=== PATIENT | female | born 1990 | race Caucasian/White ===

== ENCOUNTER → 2023-07-15 13:15 | Outpatient (REF) | payer BC, SELFPAY | LOC: PNTC 13:15 | PROVIDERS: ATTENDING PHYSICIAN Obstetrics & Gynecology | DX: Z36.0 Encounter for antenatal screening for chromosomal anomalies (principal); Z36.82 Encounter for antenatal screening for nuchal translucency | CPT/HCPCS: 76801; 76813 ==

== ENCOUNTER → 2023-09-08 16:36 | Outpatient (REF) | payer BC, SELFPAY | LOC: PNTC 16:36 | PROVIDERS: ATTENDING PHYSICIAN Obstetrics & Gynecology | DX: Z36.0 Encounter for antenatal screening for chromosomal anomalies (principal); Z36.82 Encounter for antenatal screening for nuchal translucency | CPT/HCPCS: 76805 ==

== ENCOUNTER → 2024-01-14 17:30 | Outpatient (REF) | payer BC, SELFPAY | LOC: PNTC 17:30 | PROVIDERS: ATTENDING PHYSICIAN Obstetrics & Gynecology | DX: O36.8190 Decreased fetal movements, unspecified trimester, not applicable or unspecified (principal) | CPT/HCPCS: 59025; 76818 ==

== ENCOUNTER 2024-01-17 13:08 | Observation (INO) | payer BC, SELFPAY ==
[2024-01-17 13:21] VITALS: BP 123/76; BMI 28.7
== END 2024-01-17 17:05 | disposition home or self-care (01) ==
LOC: LDRP 13:08
PROVIDERS: ADMITTING PHYSICIAN Obstetrics & Gynecology; ATTENDING PHYSICIAN Obstetrics & Gynecology
DX: R10.9 Unspecified abdominal pain (principal); O47.1 False labor at or after 37 completed weeks of gestation; Z3A.39 39 weeks gestation of pregnancy; Z83.3 Family history of diabetes mellitus
CPT/HCPCS: 36415; 86850; 86900; 86901; G0378

== ENCOUNTER 2024-01-18 06:03 | Observation (INO) | payer BC, SELFPAY ==
[2024-01-18 06:16] VITALS: BP 124/83; BMI 28.7
== END 2024-01-18 08:20 | disposition home or self-care (01) ==
LOC: LDRP 06:03
PROVIDERS: ADMITTING PHYSICIAN Obstetrics & Gynecology
DX: O48.0 Post-term pregnancy (principal); Z3A.40 40 weeks gestation of pregnancy; Z83.3 Family history of diabetes mellitus; R10.9 Unspecified abdominal pain
CPT/HCPCS: 59899; G0378

== ENCOUNTER 2024-01-18 19:15 | Inpatient (IN) | payer BC, SELFPAY ==
[2024-01-18 19:20] VITALS: BP 135/82; BMI 28.7
[2024-01-18 21:03] LABS: Hemoglobin 10.9 g/dL (12.0-16.0); Mean Corpuscular Hgb 24.5 pg (27.0-31.0); Mean Corpuscular Volume 74.2 fL (81.0-99.0); Mean Platelet Volume 11.6 fL (7.4-10.4); Platelet Count 262 10^3/uL (130-400); Red Blood Cell Count 4.45 10^6/uL (4.20-5.40); Red Cell Dist. Width 14.1 % (11.5-14.5); White Blood Cell Count 15.7 10^3/uL (4.8-10.8)
[2024-01-18] MEDS: LR 1000 IV ×2 (21:29→23:15)
[2024-01-18 21:42] LABS: % Basophils 0.3 % (0-2); % Eosinophils 0.1 % (0-6); % Immature Granulocytes 0.5 % (0-0.5); % Lymphocytes 10.3 % (20.5-51.1); % Neutrophils 81.8 % (42.2-75.2); Absolute Immature Granulocytes 0.1 10^3/uL (0-0.05); Absolute Lymphocytes 1.6 10^3/uL (1.2-3.4); Absolute Monocytes 1.1 10^3/uL (0.1-0.6); Absolute Neutrophils 12.8 10^3/uL (1.4-6.5); Nucleated Red Blood Cells % 0 %
[2024-01-18] MEDS: SUBLIMAZE 100 MCG EPIDURAL (22:02)
[2024-01-18] MEDS: FENTANYL/BUPIVACAINE 100 EPIDURAL (22:03)
[2024-01-19] MEDS: PITOCIN 30 UNITS/NSS 500 ML IV (00:03)
[2024-01-19] MEDS: PRENATAL PLUS 1 TABLET PO (08:29)
[2024-01-19] MEDS: MOTRIN 600 MG PO (11:54)
[2024-01-20 05:22] LABS: Hemoglobin 9.8 g/dL (12.0-16.0)
[2024-01-20] MEDS: PRENATAL PLUS 1 TABLET PO (09:33)
[2024-01-20] MEDS: M-M-R II 0.5 ML SC (10:20)
[2024-01-20 15:22] LABS: Syphilis/T. pallidum Ab Reflex Negative (Negative)
== END 2024-01-20 11:11 | disposition home or self-care (01) | DRG 807 ==
LOC: LDRP 19:15
PROVIDERS: ADMITTING PHYSICIAN Obstetrics & Gynecology
PROC: 0KQM0ZZ Repair Perineum Muscle, Open Approach (ICD-10-PCS; 2024-01-19)
PROC: 10E0XZZ Delivery of Products of Conception, External Approach (ICD-10-PCS; 2024-01-19)
DX: O70.1 Second degree perineal laceration during delivery (principal); Z37.0 Single live birth; Z3A.40 40 weeks gestation of pregnancy
CPT/HCPCS: 85014; 85018; 85025; 86780; 86850; 86900; 86901; 90707; G0378